=== PATIENT | female | born 1950 | race Caucasian/White ===

== ENCOUNTER 2019-07-05 10:20 | Emergency (ER) | payer MEDICARE ==
--- OUTSIDE RECORDS SUMMARY | 2019-07-05 10:31 | XMS REPORT | Continuity of Care Document ---
:1950 External Reference #:[id number] Author Name Marisa Ramirez M.D. (transmitted by agent of provider Quyen Bunn) Address [address] [place] [address] Problems Active Problems Provider Date Hyperlipidemia Marisa Ramirez M.D. Onset: 11/04/2010 Benign hypertensive heart disease without Marisa Ramirez M.D. Onset: 11/04/2010 congestive heart failure Mitral valve disorder Marisa Ramirez M.D. Onset: 11/04/2010 Osteoarthritis Marisa Ramirez M.D. Onset: 11/04/2010 Acute bronchitis Toby Keys MD Onset: 05/17/2013 Social History Type Date Description Comments Sex Unknown Tobacco Use Start: Unknown Denies Smoking ETOH Use Denies alcohol use Recreational Drug Use Denies Drug Use Tobacco Use Start: Unknown Patient has never smoked Allergies, Adverse Reactions, Alerts Active Allergies Reaction Severity Comments Date Tetracycline 08/02/2005 Sulfamethoxazole w/Trimethoprim 05/31/2013 Medications Active Medications SIG Qnty Indications Ordering Date Provider Cirilo Holt Plus F41.1 Marisa Ramirez, 08/22/2018 Capsules M.D. Hydrochlorothiazide Take 1 Tablet 90tabs Marisa Ramirez, 08/04/2015 25mg Tablets By Mouth Once M.D. Daily Enalapril Maleate take 1 tablet 180tabs Marisa Ramirez, 08/04/2015 10mg Tablets by mouth M.D. twice daily Aspirin 1 PO qd Marisa Ramirez, 08/02/2005 81mg Chewtabs M.D. Probiotic qd Unknown Capsules Vitamin B Complex every day Unknown Tablets Vitamin D daily Unknown (Cholecalciferol) 1000Unit Capsules Multivitamin Adults 50+ One A Day Unknown Adlt 50+ Tablets Medications Administered in Office Medication SIG Qnty Indications Ordering Provider Date PPD Injection Marisa Ramirez M.D. 09/06/2011 PPD Injection Marisa Ramirez M.D. 10/22/2009 Immunizations CPT Code Status Date Vaccine Lot # [id number] Given 05/02/2018 Influenza Virus (Quadrivalent)Splitvirus 3 Years Of Age And Older Q2035 Given 05/03/2017 Influenza Virus (Quadrivalent)Splitvirus 3 Years Of Age And Older Q2037 Given 05/18/2016 Influenza Vaccine (Fluvirin) 3 Years Of Age Or Older 45210 Given 05/29/2015 Pneumococcal Conjugate Vaccine 13 Valent For [id number] Intramuscular Use 88585 Given 09/21/2014 Tetanus,Diphtheria,Adut/Adol Pertussis Q2037 Given 2014 Influenza Vaccine (Fluvirin) 3 Years Of Age Or Older 08843 Given 03/25/2009 Influenza Vaccine [id number] Given 05/26/2005 Influenza Vaccine [id number] Vital Signs Date Vital Result Comment 05/15/2019 9:56am BP Systolic 118 mmHg BP Diastolic 70 mmHg Heart Rate 60 /min Height 64.50 inches 5'4.50" Weight 174.00 lb BMI (Body Mass Index) 29.4 kg/m2 O2 % BldC Oximetry 94 % 10/31/2018 8:13am BP Systolic 118 mmHg BP Diastolic 64 mmHg Height 65 inches 5'5" Weight 173.00 lb BMI (Body Mass Index) 28.8 kg/m2 Results Test Acquired Date Facility Test Result H/L Range Note General Health 05/01/2019 [facility] TSH 3.23 mIU/L Normal 0.40- 4.50 [facility] [address] [place] [address] [phone] T4, Free 0.9 ng/dL Normal 0.8-1.8 CBC (Includes 05/01/2019 [facility] White 7.9 Thousand/uL Normal 3.8-10.8 Diff/PLT) [address] [address] Count Red Blood Cell Count 3.93 Million/uL Normal 3.80-5.10 Hemoglobin 12.5 g/dL Normal 11.7-15.5 Hematocrit 36.5 % Normal 35.0-45.0 MCV 92.9 fL Normal 80.0-100.0 MCH 31.8 pg Normal 27.0-33.0 MCHC 34.2 g/dL Normal 32.0-36.0 RDW 12.9 % Normal 11.0-15.0 Platelet Count 297 Thousand/uL Normal 140-400 MPV 9.8 fL Normal 7.5-12.5 Absolute Neutrophils 4716 cells/uL Normal 7202-9804 Absolute Lymphocytes 2362 cells/uL Normal 850-3900 Absolute Monocytes 490 cells/uL Normal 200-950 Absolute Eosinophils 261 cells/uL Normal 15-500 Absolute Basophils 71 cells/uL Normal 0-200 Neutrophils 59.7 % Normal 38-80 Lymphocytes 29.9 % Normal 15-49 Monocytes 6.2 % Normal 0-13 Eosinophils 3.3 % Normal 0-8 Basophils 0.9 % Normal 0-2 Comprehensive Metabolic 05/01/2019 [facility] Glucose 101 mg/dL High 65-99 1 Panel [address] [place], [place] [id number] [phone] Urea Nitrogen (BUN) 26 mg/dL High 7-25 Creatinine 0.93 mg/dL Normal 0.60-0.93 2 eGFR Non-Afr. Chadian 62 mL/min/1.73m2 Normal > Or = 60 eGFR 72 mL/min/1.73m2 Normal > Or = 60 BUN/Creatinine Ratio 28 (calc) High 6-22 Sodium 137 mmol/L Normal 135-146 Potassium 4.1 mmol/L Normal 3.5-5.3 Chloride 102 mmol/L Normal 98-110 Carbon Dioxide 25 mmol/L Normal 20-32 Calcium 9.2 mg/dL Normal 8.6-10.4 Protein, Total 6.6 g/dL Normal 6.1-8.1 Albumin 3.9 g/dL Normal 3.6-5.1 Globulin 2.7 g/dL(calc) Normal 1.9-3.7 Albumin/Globulin Ratio 1.4 (calc) Normal 1.0-2.5 Bilirubin, Total 0.4 mg/dL Normal 0.2-1.2 Alkaline Phosphatase 67 U/L Normal 33-130 Ast 18 U/L Normal 10-35 Alt 25 U/L Normal 6-29 Laboratory test 05/01/2019 [facility] Enhanced PDF Report SEE IMAGE finding [address] [id number] [place] [address] [phone] Fasting reference interval For someone without known diabetes, a glucose value between 100 and 125 mg/dL is consistent with prediabetes and should be confirmed with a follow-up test. 2 For patients >49 years of age, the reference limit for Creatinine is approximately 13% higher for people identified as -Chadian. Procedures Date Code Description Status 05/09/2019 20410 Non-Invcorrotid/Comp /Bilat Study Completed 05/08/2019 40357 Echocardiography Completed 05/01/2019 24060 EKG-Tracing & Report Completed 06/16/2016 [id number] Mammogram Completed 05/29/2015 [id number] Bone Mineral Density Test Completed 04/18/2009 [id number] Colonoscopy Completed Medical Devices Description No Information Available Encounters Description No Information Available Assessments Date Code Description Provider 05/09/2019 I65.23 Occlusion and stenosis of bilateral carotid Marisa Ramirez M.D. arteries 05/08/2019 I34.0 Nonrheumatic mitral (valve) insufficiency Marisa Ramirez M.D. 05/01/2019 E78.2 Mixed hyperlipidemia Marisa Ramirez M.D. Plan of Treatment No Information Available Functional Status Description No Information Available Mental Status Description No Information Available Referrals Description No Information Available
--- OUTSIDE RECORDS SUMMARY | 2019-07-05 10:31 | XMS REPORT | Continuity of Care Document ---
:1950 External Reference #:[id number] Author Name Marisa Ramirez M.D. (transmitted by agent of provider Hedy Segura) Address [address] [place] [address] Problems Active Problems Provider Date Hyperlipidemia Marisa [...] Medications SIG Qnty Indications Ordering Date Provider Fish Oil 2 capsules I11.9 Marisa Ramirez, 05/15/2019 1200mg Capsules M.D. Valerian Root Plus F41.1 Marisa Ramirez, 08/22/2018 Capsules M.D. Hydrochlorothiazide Take 1 Tablet 90tabs Marisa Ramirez, 08/04/2015 25mg Tablets By Mouth Once M.D. Daily Enalapril Maleate take 1 tablet 180tabs Marisa Ramirez, 08/04/2015 10mg Tablets by mouth twice M.D. daily Aspirin 1 PO qd Marisa Ramirez, [...] (Fluvirin) 3 Years Of Age Or Older [address] Given 05/29/2015 Pneumococcal Conjugate Vaccine 13 Valent For [id number] Intramuscular Use 37775 Given 09/21/2014 Tetanus,Diphtheria,Adut/Adol Pertussis Q2037 Given 2014 Influenza Vaccine (Fluvirin) 3 Years Of Age Or Older 26430 Given 03/25/2009 Influenza Vaccine [id number] 03902 Given 05/26/2005 Influenza Vaccine [id number] Vital Signs Date Vital Result Comment 05/15/2019 [...] H/L Range Note General Health 05/01/2019 [facility] TSH 3.23 mIU/L Normal 0.40- 4.50 [facility] [address] [place] [address] [phone] T4, Free 0.9 ng/dL Normal 0.8-1.8 CBC (Includes 05/01/2019 [facility] White 7.9 Thousand/uL Normal 3.8-10.8 Diff/PLT) [address] [place] [address] Count Red Blood Cell Count 3.93 Million/uL Normal 3.80-5.10 Hemoglobin 12.5 g/dL Normal 11.7-15.5 Hematocrit 36.5 % Normal 35.0-45.0 MCV 92.9 fL Normal 80.0-100.0 MCH 31.8 pg Normal 27.0-33.0 MCHC 34.2 g/dL Normal 32.0-36.0 RDW 12.9 % Normal 11.0-15.0 Platelet Count 297 Thousand/uL Normal 140-400 MPV 9.8 fL Normal 7.5-12.5 Absolute Neutrophils 4716 cells/uL Normal 3061-4504 Absolute Lymphocytes 2362 cells/uL Normal 850-3900 Absolute Monocytes 490 cells/uL Normal 200-950 Absolute Eosinophils 261 cells/uL Normal 15-500 Absolute Basophils 71 cells/uL Normal 0-200 Neutrophils 59.7 % Normal 38-80 Lymphocytes 29.9 % Normal 15-49 Monocytes 6.2 % Normal 0-13 Eosinophils 3.3 % Normal 0-8 Basophils 0.9 % Normal 0-2 Comprehensive Metabolic 05/01/2019 [facility] Glucose 101 mg/dL High 65-99 1 Panel [address] [place], [place] [id number] [phone] Urea Nitrogen (BUN) 26 mg/dL High 7-25 Creatinine 0.93 mg/dL Normal 0.60-0.93 2 eGFR Non-Afr. Venezuelan 62 mL/min/1.73m2 Normal > Or = 60 [...] U/L Normal 6-29 Laboratory test 05/01/2019 [facility] Enhanced PDF Report SEE IMAGE finding [address] [id number] [place] [address] [phone] Fasting reference interval For someone without known diabetes, a glucose value between 100 and 125 mg/dL is consistent with prediabetes and should be confirmed with a follow-up test. 2 For patients >49 years of age, the reference limit for Creatinine is approximately 13% higher for people identified as -Venezuelan. Procedures Date Code Description Status 05/09/2019 24998 Non-Invcorrotid/Comp /Bilat Study Completed 05/08/2019 41390 Echocardiography Completed 05/01/2019 48535 EKG-Tracing & Report Completed 06/16/2016 [id number] Mammogram Completed 05/29/2015 [id number] Bone Mineral Density Test Completed 04/18/2009 [id number] Colonoscopy Completed Medical Devices Description No Information Available Encounters Type Date Location Provider Dx Diagnosis Office Visit 05/15/2019 Main Office Marisa Ramirez M.D. I11.9 Hypertensive heart 10:00a disease without heart failure E78.2 Mixed hyperlipidemia Assessments Date Code Description Provider 05/15/2019 I11.9 Hypertensive heart disease without heart failure Marisa Ramirze M.D. 05/15/2019 E78.2 Mixed hyperlipidemia Marisa Ramirez M.D. 05/09/2019 I65.23 Occlusion and stenosis of bilateral carotid Marisa Ramirez M.D. arteries 05/08/2019 I34.0 Nonrheumatic mitral (valve) insufficiency Marisa Ramirez M.D. 05/01/2019 E78.2 Mixed hyperlipidemia Marisa Ramirez M.D. Plan of Treatment Future Appointment(s):11/05/2019 8:00 am - Nurse at [facility]/13/2019 10: 45 am - Marisa Ramirez M.D. at [facility]/15/2019 - Marisa Ramirez M.D.I11.9 Hypertensive heart disease without heart failureNew Medication:Fish Oil 1200 mg - 2 capsulesComments:Continue with medication as directed. Reminded of regular exercise and the need to self monitor blood pressure regularly To call office with persistently elevated blood uneifcttpR30.2 Mixed hyperlipidemiaComments: contine low fat diet and exercise Functional Status Description No Information Available Mental Status Description No Information Available Referrals Description No Information Available
[2019-07-05 11:20] VITALS: BP 111/63
--- NOTE | 2019-07-05 12:02 | UC ---
Respiratory Complaint HPI - HPI Summary HPI Summary: Pt presents with c/o cough, wheezing and shortness of breath X 3-4 days. - History of Current Complaint Chief Complaint: UCGeneralIllness Stated Complaint: VELEZ,CONGESTION Time Seen by Provider: 07/05/19 11:53 Hx Obtained From: Patient ?: No Onset/Duration: Gradual Onset, Lasting Days, Still Present, Worse Since Timing: Constant Severity Initially: Mild Severity Currently: Moderate Pain Intensity: 6 Character: Cough: Nonproductive Aggravating Factors: Exertion, Deep Breaths, Recumbent Position Alleviating Factors: Nothing Associated Signs And Symptoms: Positive: Wheezing, URI, Nasal Congestion - Risk Factors Pulmonary Embolism Risk Factors: Negative Cardiac Risk Factors: Hypertension, CAD Pseudomonas Risk Factors: Negative Tuberculosis Risk Factors: Negative - Allergies/Home Medications Allergies/Adverse Reactions: Allergies Allergy/AdvReac Type Severity Reaction Status Date / Time Sulfa (Sulfonamide Allergy Hives Verified 07/05/19 11:12 Antibiotics) Tetracyclines Allergy Rash Verified 07/05/19 11:12 Home Medications: Home Medications Guaifenesin/Dextromethorphan [Mucinex Dm ER 600-30 mg Tablet] 2 tab PO ONCE [History Confirmed 07/05/19] Hydrochlorothiazide TAB* [Hydrodiuril TAB*] 25 mg PO DAILY 07/05/19 [History Confirmed 07/05/19] PMH/Surg Hx/FS Hx/Imm Hx Previously Healthy: Yes Cardiovascular History: Cardiac Disease, Hypertension - Surgical History Surgical History: Yes Surgery Procedure, Year, and Place: TUBAL LIGATION, TONSILLECTOMY - Family History Known Family History: Positive: Cardiac Disease - Social History Occupation: Retired Alcohol Use: Rare Substance Use Type: None Smoking Status (MU): Never Smoked Tobacco Have You Smoked in the Last Year: No Review of Systems All Other Systems Reviewed And Are Negative: Yes Constitutional: Positive: Chills, Fatigue Skin: Positive: Negative Eyes: Positive: Negative ENT: Positive: Sinus Congestion Respiratory: Positive: Shortness Of Breath, Cough, Other - wheezing Cardiovascular: Positive: Negative Gastrointestinal: Positive: Negative Genitourinary: Positive: Negative Motor: Positive: Negative Neurovascular: Positive: Negative Musculoskeletal: Positive: Negative Neurological: Positive: Negative Psychological: Positive: Negative Is Patient Immunocompromised?: No Physical Exam Triage Information Reviewed: Yes Appearance: Ill-Appearing Vital Signs: Initial Vital Signs Temp 98.5 F 07/05/19 11:16 Pulse 82 07/05/19 11:16 Resp 16 07/05/19 11:16 BP 111/63 07/05/19 11:16 Pulse Ox 95 07/05/19 11:16 Vital Signs Reviewed: Yes Eye Exam: Normal ENT: Positive: Nasal congestion, Sinus tenderness Dental Exam: Normal Neck exam: Normal Respiratory: Positive: Wheezing Cardiovascular Exam: Normal Musculoskeletal Exam: Normal Neurological Exam: Normal Psychological Exam: Normal Skin Exam: Normal Respiratory Course/Dx - Differential Dx/Diagnosis Differential Diagnosis/HQI/PQRI: Bronchitis, Influenza, Sinusitis Provider Diagnosis: Sinusitis, Bronchitis, Wheezing on both sides of chest Discharge ED - Sign-Out/Discharge Documenting (check all that apply): Patient Departure All imaging exams completed and their final reports reviewed: No Studies - Discharge Plan Condition: Stable Disposition: HOME Prescriptions: Albuterol HFA INHALER* [Ventolin HFA Inhaler*] 1 - 2 puff INH Q6H PRN #1 mdi PRN Reason: Sob/Wheezing Amoxicillin PO (*) [Amoxicillin 875 MG (*)] 875 mg PO Q12H #20 tab Benzonatate CAP* [Tessalon 100 MG CAP*] 100 mg PO Q8H PRN #30 cap PRN Reason: Cough predniSONE TAB* [Deltasone 20 MG TAB*] 60 mg PO DAILY #12 tab Patient Education Materials: Sinusitis (ED), Acute Bronchitis (ED), Wheezing ( ED) Referrals: Marisa Ramirez MD [Primary Care Provider] - If Needed - Billing Disposition and Condition Condition: STABLE Disposition: Home - Attestation Statements Provider Attestation: Per institutional requirements, I have reviewed the chart, however, I was not consulted specifically or made aware of this patient by the midlevel provider. I did not personally evaluate, interact with , or disposition this patient.
== END 2019-07-05 12:16 | disposition home or self-care (01) ==
LOC: UCCORT 10:20
DX: J40 Bronchitis, not specified as acute or chronic (principal); J32.9 Chronic sinusitis, unspecified; R06.2 Wheezing; I10 Essential (primary) hypertension; Z88.1 Allergy status to other antibiotic agents; Z88.2 Allergy status to sulfonamides
CPT/HCPCS: 99202; G0463